=== PATIENT | female | born 1980 | race Caucasian/White ===

== ENCOUNTER → 2016-12-02 | Outpatient (CLI) | payer OTHER ==
[~2016-12-02] MED LIST: PERC5TAB6 PO
[2016-12-02 11:09] LABS: BASO % 0.5 % (0.0-1.0); EOS # 0.2 K/mm3 (0.0-0.50); EOS % 1.8 % (0.0-3.0); LYMPH # 2.5 K/mm3 (1.5-4.5); LYMPH % 26.8 % (24.0-44.0); MEAN CORPUSCULAR HEMOGLOBIN 31.4 pg (27.0-33.0); MEAN CORPUSCULAR HGB CONC 33.8 g/dl (32.0-36.5); MONO # 0.5 K/mm3 (0.0-0.8); MONO % 5.4 % (0.0-5.0); NEUTROPHILS # 5.7 K/mm3 (1.8-7.7); NEUTROPHILS % 64.4 % (36.0-66.0); WHITE BLOOD COUNT 8.8 K/mm3 (4.0-10.0)
[2016-12-02 12:14] LABS: ALBUMIN/GLOBULIN RATIO 1.05 (1.00-1.93); ALKALINE PHOSPHATASE 63 U/L (45-117); ALT/SGPT 28 U/L (12-78); ANION GAP 10 MEQ/L (8-16); AST/SGOT 19 U/L (15-37); BILIRUBIN,TOTAL 0.5 MG/DL (0.2-1.0); BLOOD UREA NITROGEN 11 MG/DL (7-18); CALCIUM LEVEL 9.1 MG/DL (8.5-10.1); CARBON DIOXIDE LEVEL 26 MEQ/L (21-32); CHLORIDE LEVEL 106 MEQ/L (98-107); CHOLESTEROL LEVEL 144 MG/DL (<200); CREATININE FOR GFR 0.72 MG/DL (0.55-1.02); GLOMERULAR FILTRATION RATE > 60.0 (>60); GLUCOSE, FASTING 91 MG/DL (70-105); POTASSIUM SERUM 4.4 MEQ/L (3.5-5.1); SODIUM LEVEL 142 MEQ/L (136-145); TOTAL PROTEIN 7.8 GM/DL (6.4-8.2); TRIGLYCERIDES LEVEL 88 MG/DL (<150)
--- NOTE | 2016-12-02 12:18 | REP ---
LEFT SHOULDER, THREE VIEWS: HISTORY: Transient ischemic attacks (TIA)s. COMPARISON: 05/06/2015. There is no acute fracture or dislocation. The joint spaces are normal in appearance. IMPRESSION: There is no acute fracture or dislocation. Signed by Jama Woods MD 12/02/2016 12:21 P
--- NOTE | 2016-12-02 12:18 | REP ---
LEFT FOREARM, TWO VIEWS: HISTORY: TIAs. There is no acute fracture or dislocation. The joint spaces are normal in appearance. IMPRESSION: There is no acute fracture or dislocation. Signed by Jama Woods MD 12/02/2016 12:21 P
== END ==
LOC: M LAB 10:44
PROVIDERS: ATTEND Physician Assistant Medical
DX: G45.9 Transient cerebral ischemic attack, unspecified (principal); M25.522 Pain in left elbow; M25.512 Pain in left shoulder

== ENCOUNTER → 2016-12-19 | Outpatient (CLI) | payer OTHER | LOC: M LAB 09:39 | PROVIDERS: ATTEND Psychiatry & Neurology Neurology | DX: Z13.9 Encounter for screening, unspecified (principal); Z86.73 Personal history of transient ischemic attack (TIA), and cerebral infarction without residual deficits ==

== ENCOUNTER → 2017-04-21 | Outpatient (CLI) | payer OTHER ==
[~2017-04-21] MED LIST changes: +PERC5TAB12 PO; -PERC5TAB6 PO
--- NOTE | 2017-04-22 02:39 | REP ---
Clinical: Lower back pain. Technique: AP, lateral, bilateral oblique and sunrise views of the lumbosacral spine. Findings: Alignment and lordosis maintained. Subtle increased sclerosis to the vertebral body endplates along with subtle marginal osteophyte at the L1-2 level and mild hypertrophic facet changes at the L4-5 and L5-S1 levels suggest mild degenerative changes. No acute fracture / compression injury or subluxation. Impression: Mild degenerative changes cannot be excluded. If the patient remains symptomatic consider MRI for further investigation. Signed by Darrell Hinkle MD 04/22/2017 02:31 A
== END ==
LOC: M SMT 15:58
PROVIDERS: ATTEND Physician Assistant Medical
DX: M54.5 Low back pain (principal)

== ENCOUNTER 2017-06-02 20:32 | Emergency (ER) | payer OTHER ==
[~2017-06-02] VITALS: Ht 165.1 cm; Wt 61.3 kg
[2017-06-02 20:32] VITALS: BP 140/87
== END 2017-06-02 21:30 | disposition left against medical advice (07) ==
LOC: M ED 20:32
DX: R29.818 Other symptoms and signs involving the nervous system (principal); Z53.21 Procedure and treatment not carried out due to patient leaving prior to being seen by health care provider

== ENCOUNTER 2018-04-17 05:28 | Emergency (ER) | payer MEDICAID, SELFPAY, OTHER ==
[2018-04-17] MEDS: NS 1,000 ML IV (06:00)
[2018-04-17 06:05] LABS: AMORPHOUS SEDIMENT RFX SMALL (NEGATIVE); KETONE, URINE AUTO RFX TRACE mg/dL (NEGATIVE); LEUKOCYTE ESTERASE UR AUTO RFX 2+ (NEGATIVE); MUCUS, URINE RFX LARGE (NEGATIVE); NITRITE, URINE AUTO RFX NEGATIVE (NEGATIVE); RBC, URINE AUTO RFX TNTC /HPF (0-3); SPECIFIC GRAVITY UR AUTO RFX 1.027 (1.002-1.035); SQUAM EPITHELIAL CELL UR AURFX 10 /HPF (0-6); WBC, URINE AUTO RFX TNTC /HPF (0-3)
[2018-04-17 06:25] LABS: CONTROL LINE UCG INT CTR LINE PRESENT; URINE PREG TEST NEGATIVE (NEGATIVE)
[2018-04-17 06:40] LABS: BASO # 0.1 10^3/uL (0.0-0.2); BASO % 0.5 % (0.0-1.0); EOS # 0.2 10^3/uL (0.0-0.50); EOS % 1.8 % (0.0-3.0); HEMATOCRIT 39.8 % (36.0-47.0); HEMOGLOBIN 13.4 g/dl (12.0-15.5); IMMATURE GRANULOCYTE % 0.3 % (0-3.0); LYMPH # 3.5 10^3/uL (1.5-4.5); LYMPH % 31.3 % (24.0-44.0); MEAN CORPUSCULAR HEMOGLOBIN 29.9 pg (27.0-33.0); MEAN CORPUSCULAR HGB CONC 33.7 g/dl (32.0-36.5); MEAN CORPUSCULAR VOLUME 88.8 fl (80.0-96.0); MONO # 0.9 10^3/uL (0.0-0.8); MONO % 8.1 % (0.0-5.0); NEUTROPHILS # 6.5 10^3/uL (1.8-7.7); PLATELET COUNT, AUTOMATED 299 10^3/uL (150-450); RED BLOOD COUNT 4.48 10^6/uL (4.00-5.40); WHITE BLOOD COUNT 11.1 10^3/uL (4.0-10.0)
[2018-04-17] MEDS: KETOROLAC 30 MG/ML VIAL (J1885) IV (06:48)
[2018-04-17] MEDS: ONDANSETRON 4MG/2ML VIAL (J2405) IV (06:48)
[2018-04-17 07:04] LABS: ANION GAP 7 MEQ/L (8-16); BLOOD UREA NITROGEN 13 MG/DL (7-18); CALCIUM LEVEL 8.8 MG/DL (8.5-10.1); CARBON DIOXIDE LEVEL 25 MEQ/L (21-32); CHLORIDE LEVEL 111 MEQ/L (98-107); CREATININE FOR GFR 0.69 MG/DL (0.55-1.30); GLOMERULAR FILTRATION RATE > 60.0 (>58); GLUCOSE, FASTING 106 MG/DL (70-100); POTASSIUM SERUM 3.7 MEQ/L (3.5-5.1); SODIUM LEVEL 143 MEQ/L (136-145)
== END 2018-04-17 08:30 | disposition home or self-care (01) ==
LOC: M ED 05:28
DX: N20.0 Calculus of kidney (principal); N30.00 Acute cystitis without hematuria; B18.2 Chronic viral hepatitis C; F17.210 Nicotine dependence, cigarettes, uncomplicated; Z87.442 Personal history of urinary calculi; Z90.49 Acquired absence of other specified parts of digestive tract
CPT/HCPCS: J2405

== ENCOUNTER 2018-05-30 15:14 | Emergency (ER) | payer OTHER, MEDICAID ==
[2018-05-30] MEDS ORDERED: ANUSOL HC CREAM 30GM TOP (17:45)
[2018-05-30] MEDS: valACYclovir HCL 500 MG TAB PO (18:00)
[2018-05-30] MEDS: predniSONE 20 MG TAB PO (18:00)
[2018-05-30] MEDS: BACTRIM 160MG/800MG DS TAB PO (18:00)
== END 2018-05-30 18:07 | disposition home or self-care (01) ==
LOC: M ED 15:14
DX: B02.9 Zoster without complications (principal)
CPT/HCPCS: 99283